=== PATIENT | female | born 1985 | race Two or more races ===

== ENCOUNTER 2024-05-28 20:29 | Emergency (ER) | payer OTHER ==
[~2024-05-28] VITALS: Ht 165.1 cm; Wt 106.6 kg
== END 2024-05-28 23:16 | disposition home or self-care (01) ==
LOC: ER 20:32
DX: S93.492A Sprain of other ligament of left ankle, initial encounter (principal); X58.XXXA Exposure to other specified factors, initial encounter; Y93.89 Activity, other specified; Y92.89 Other specified places as the place of occurrence of the external cause; Y99.8 Other external cause status; M25.572 Pain in left ankle and joints of left foot